=== PATIENT | male | born 1945 | race Caucasian/White ===

== ENCOUNTER → 2021-03-22 | Outpatient (CLI) | payer OTHER | LOC: KOH-I 03-09 09:30 | DX: M51.16 Intervertebral disc disorders with radiculopathy, lumbar region (principal) | CPT/HCPCS: 72148 ==

== ENCOUNTER → 2021-04-08 | Outpatient (CLI) | payer OTHER | LOC: KOH-I 04-06 08:00 | DX: M51.16 Intervertebral disc disorders with radiculopathy, lumbar region (principal); M51.17 Intervertebral disc disorders with radiculopathy, lumbosacral region | CPT/HCPCS: 72131 ==

== ENCOUNTER → 2021-04-28 | Outpatient (CLI) | payer OTHER | LOC: HEART 5 14:14 | DX: Z01.811 Encounter for preprocedural respiratory examination (principal) | CPT/HCPCS: 94010; 94729 ==

== ENCOUNTER → 2021-05-11 | Outpatient (CLI) | payer OTHER ==
[~2021-05-11] MED LIST: ASPIRIN EC81 MG PO; BACLOFEN10 MG PO; FERREX 150150 MG PO; FINASTERIDE5 MG PO; FLOMAX 0.4 MG0.4 MG PO; ISOSORBIDE MONO30 MG PO; LIPITOR10 MG PO; NITROGLYCERIN0.4 MG SL; PROAIR HFA8.5 GM INH; PROTONIX 40 MG40 M1 PO; ROPINIROLE HCL1 MG PO; WARFARIN SODIUM5 MG PO; WARFARIN SODIUM6 MG PO; ZOLOFT50 MG PO
== END ==
LOC: LAB 08:16
PROVIDERS: Orthopaedic Surgery
DX: Z01.812 Encounter for preprocedural laboratory examination (principal)
CPT/HCPCS: 36415; 80048; 86850; 86900; 86901

== ENCOUNTER 2021-05-12 07:31 | Inpatient (IN) | payer OTHER ==
[~2021-05-12] VITALS: Ht 182.9 cm; Wt 116.5 kg
[2021-05-12] MEDS ORDERED: FERREX 150150 MG PO (08:16)
[2021-05-12] MEDS ORDERED: FINASTERIDE5 MG PO (08:16)
[2021-05-12] MEDS ORDERED: PROTONIX 40 MG40 M1 PO (08:16)
[2021-05-12] MEDS ORDERED: BACLOFEN10 MG PO (08:17)
[2021-05-12] MEDS ORDERED: ISOSORBIDE MONO30 MG PO (08:20)
[2021-05-12] MEDS ORDERED: ROPINIROLE HCL1 MG PO (08:20)
[2021-05-12] MEDS ORDERED: FLOMAX 0.4 MG0.4 MG PO (08:21)
[2021-05-12] MEDS ORDERED: LIPITOR10 MG PO (08:21)
[2021-05-12] MEDS ORDERED: ZOLOFT50 MG PO (08:21)
[2021-05-12 17:14] LABS: HEMOGLOBIN 13.9 gm/dl (14.0-17.5); RED BLOOD COUNT 4.79 M/UL (4.20-5.50); WHITE BLOOD COUNT 11.2 K/UL (4.5-11.0)
[2021-05-12 17:39] LABS: BUN/CREATININE RATIO 12 (0-10)
[2021-05-13 05:54] LABS: RED BLOOD COUNT 4.5 M/UL (4.20-5.50); WHITE BLOOD COUNT 11.6 K/UL (4.5-11.0)
[2021-05-13 06:41] LABS: BUN/CREATININE RATIO 15 (0-10)
[2021-05-13] MEDS ORDERED: WARFARIN SODIUM6 MG PO (08:19)
[2021-05-13] MEDS ORDERED: WARFARIN SODIUM5 MG PO (08:19)
[2021-05-13] MEDS ORDERED: ASPIRIN EC81 MG PO (08:21)
[2021-05-13] MEDS ORDERED: NITROGLYCERIN0.4 MG SL (08:23)
[2021-05-13] MEDS ORDERED: PROAIR HFA8.5 GM INH (08:23)
[2021-05-14 06:11] LABS: HEMOGLOBIN 11.5 gm/dl (14.0-17.5); WHITE BLOOD COUNT 9.3 K/UL (4.5-11.0)
[2021-05-14 06:43] LABS: BUN/CREATININE RATIO 19 (0-10)
--- NOTE | 2021-05-14 14:52 | NUR ---
pt arrived to unit, denies needs or c/o at thsi time.
[2021-05-15 05:20] LABS: HEMOGLOBIN 11.6 gm/dl (14.0-17.5); RED BLOOD COUNT 4.06 M/UL (4.20-5.50)
[2021-05-15 06:12] LABS: BUN/CREATININE RATIO 15 (0-10)
--- NOTE | 2021-05-15 15:42 | NUR ---
HEMOVAC DRAIN REMOVED. 25CC BLOODY DRAINAGE NOTED. PRESSURE DRESSING APPLIED TO AREA. AQUACEL DRESSING REMOVED. SURGICAL SITE CLEANSED WITH BETADINE AND COVERED WITH ISLAND DRESSING. 38 RADHA NOTED. CLEAN, DRY AND INTACT. NO DISTRESS NOTED. PATIENT TOLERATED WELL. WCTM.
[2021-05-16 05:43] LABS: HEMOGLOBIN 12.2 gm/dl (14.0-17.5); RED BLOOD COUNT 4.17 M/UL (4.20-5.50)
[2021-05-16 05:57] LABS: BUN/CREATININE RATIO 15 (0-10)
[2021-05-17 06:57] LABS: HEMOGLOBIN 12.5 gm/dl (14.0-17.5); RED BLOOD COUNT 4.25 M/UL (4.20-5.50); WHITE BLOOD COUNT 8.9 K/UL (4.5-11.0)
[2021-05-17 07:24] LABS: BUN/CREATININE RATIO 18 (0-10)
[2021-05-17] MEDS ORDERED: AUGMENTIN 875-1 EACH PO (12:03)
[2021-05-17] MEDS ORDERED: ENOXAPARIN120 MG/0.8 SC (12:03)
--- NOTE | 2021-05-17 13:48 | NUR ---
RM AIR O2 SAT 88%
== END 2021-05-17 16:24 | disposition home health service (06) | DRG 459 ==
LOC: OR 07:31 → CCU 17:55 → M/S 05-14 14:49
PROVIDERS: Internal Medicine; ADMIT Orthopaedic Surgery
PROC: 0ST20ZZ Resection of Lumbar Vertebral Disc, Open Approach (ICD-10-PCS; 2021-05-12)
PROC: 00NY0ZZ Release Lumbar Spinal Cord, Open Approach (ICD-10-PCS; 2021-05-12)
PROC: 01NB0ZZ Release Lumbar Nerve, Open Approach (ICD-10-PCS; 2021-05-12)
PROC: 4A11X4G Monitoring of Peripheral Nervous Electrical Activity, Intraoperative, External Approach (ICD-10-PCS; 2021-05-12)
PROC: 00QT0ZZ Repair Spinal Meninges, Open Approach (ICD-10-PCS; 2021-05-12)
PROC: 0SG0071 Fusion of Lumbar Vertebral Joint with Autologous Tissue Substitute, Posterior Approach, Posterior Column, Open Approach (ICD-10-PCS; principal; 2021-05-12 07:30)
DX: M48.061 Spinal stenosis, lumbar region without neurogenic claudication (principal); J96.01 Acute respiratory failure with hypoxia; J44.0 Chronic obstructive pulmonary disease with (acute) lower respiratory infection; J98.11 Atelectasis; G97.41 Accidental puncture or laceration of dura during a procedure; J60 Coalworker's pneumoconiosis; K21.9 Gastro-esophageal reflux disease without esophagitis; Z20.822 Contact with and (suspected) exposure to COVID-19; I10 Essential (primary) hypertension; G25.81 Restless legs syndrome; N40.0 Benign prostatic hyperplasia without lower urinary tract symptoms; E78.5 Hyperlipidemia, unspecified; I72.4 Aneurysm of artery of lower extremity; Z96.619 Presence of unspecified artificial shoulder joint; F41.9 Anxiety disorder, unspecified; G47.33 Obstructive sleep apnea (adult) (pediatric); Z86.718 Personal history of other venous thrombosis and embolism; Z79.01 Long term (current) use of anticoagulants; Z90.49 Acquired absence of other specified parts of digestive tract; Z90.89 Acquired absence of other organs; Z98.890 Other specified postprocedural states; Z85.038 Personal history of other malignant neoplasm of large intestine; Z82.49 Family history of ischemic heart disease and other diseases of the circulatory system; Z87.891 Personal history of nicotine dependence; Z79.82 Long term (current) use of aspirin; Z85.20 Personal history of malignant neoplasm of unspecified respiratory organ; Z79.899 Other long term (current) drug therapy; Z91.19 Patient's noncompliance with other medical treatment and regimen
CPT/HCPCS: 36415; 36600; 71045; 72100; 72110; 76000; 80048; 80053; 82803; 85007; 85025; 85027; 85610; 86140; 94640; 94660; 94664; 94760; 97110; 97116-GP-CQ; 97162; 97165; 97530; 97530-GP-CQ; 97535; C1713; C1762; J0690; J1040; J1170; J1650; J2001; J2405; J2704; J3010; J3260; J3370; J7030; J7040; J7120

== ENCOUNTER 2021-11-11 12:51 | Emergency (ER) | payer OTHER ==
[~2021-11-11 12:51] MED LIST changes: +AUGMENTIN 875-1 EACH PO; +ENOXAPARIN120 MG/0.8 SC
[2021-11-11 14:50] LABS: HEMOGLOBIN 15.2 gm/dl (14.0-17.5); RED BLOOD COUNT 5.39 M/UL (4.20-5.50); WHITE BLOOD COUNT 12.5 K/UL (4.5-11.0)
[2021-11-11 15:30] LABS: BUN/CREATININE RATIO 16 (0-10)
[2021-11-11] MEDS ORDERED: CYCLOBENZAPRINE10 MG PO (19:17)
[2021-11-11] MEDS ORDERED: HYDROCODON-ACE1 EAC4 PO (19:17)
== END 2021-11-11 19:30 | disposition home or self-care (01) ==
LOC: ER1 12:51
PROVIDERS: Preventive Medicine Occupational Medicine
DX: S39.012A Strain of muscle, fascia and tendon of lower back, initial encounter (principal); I10 Essential (primary) hypertension; I25.10 Atherosclerotic heart disease of native coronary artery without angina pectoris; E11.9 Type 2 diabetes mellitus without complications; X50.9XXA Other and unspecified overexertion or strenuous movements or postures, initial encounter; Y92.009 Unspecified place in unspecified non-institutional (private) residence as the place of occurrence of the external cause
CPT/HCPCS: 71250; 72128; 72131; 80053; 85025; 96374; 99284; J1170